=== PATIENT | male | born 1955 | race Two or more races ===

== ENCOUNTER 2023-07-23 09:34 | Day surgery (SDC) | payer OTHER ==
[2023-07-18 08:54] LABS: Basophils # (auto) 0.1 10 ^3/uL (0-0.2); Basophils % (auto) 0.8 % (0.0-2.0); Eosinophils # (auto) 0.8 10 ^3/uL (0-0.8)
[2023-07-18 08:57] LABS: Hemoglobin 14.8 g/dL (13.5-17.5); Lymphocytes # (auto) 2.1 10 ^3/uL (0.4-5.4); Lymphocytes % (auto) 18.7 % (10.0-50.0); Mean Corpuscular Hemoglobin 28.5 pg (28.0-32.0); Mean Corpuscular Volume 86.4 fL (80.0-100.0); Monocytes # (auto) 0.7 10 ^3/uL (0-1.3); Monocytes % (auto) 6.5 % (0.0-12.0); Neutrophils # (auto) 7.5 10 ^3/uL (1.6-8.6); Nucleated Red Blood Cells % 0.1 %; Red Cell Distribution Width 14.7 % (11.8-14.3); White Blood Cell 11.1 10^3/uL (4.4-10.8)
[2023-07-18 09:16] LABS: INR 1.04 (0.9-1.15); Partial Thromboplastin Time 27.8 SEC (24.5-34.5); Prothrombin Time 10.9 sec (9.3-11.8)
[2023-07-18 09:41] LABS: Alanine Aminotransferase 46 U/L (7-40); Albumin 4.6 g/dL (3.2-4.8); Alkaline Phosphatase 137 U/L (46-116); Anion Gap 3 (5-15); BUN/Creatinine Ratio 13.7 (10.0-20.0); Blood Urea Nitrogen 25 mg/dL (9-23); Calcium 10.2 mg/dL (8.5-10.1); Carbon Dioxide 32 mmol/L (20-30); Chloride 100 mmol/L (98-107); Glucose 235 mg/dL (74-106); Potassium 5.2 mmol/L (3.5-5.1); Sodium 135 mmol/L (136-145)
[2023-07-18 09:42] LABS: Aspartate Aminotransferase 28 U/L (13-40); Bilirubin, Total 0.6 mg/dL (0.2-1.0); Total Protein 7.6 g/dL (5.7-8.2)
[~2023-07-23] VITALS: Ht 177.8 cm; Wt 99.8 kg
[~2023-07-23 09:34] MED LIST: ENAL1TAB48 PO; GLIP5TAB12 PO; HYDR25TA5 PO; LEV100T PO
[2023-07-23] MEDS ORDERED: SODIUM CHLORIDE LOCK 0 ML ONE (09:41)
[2023-07-23] MEDS ORDERED: MIDAZOLAM HCL 5 MG/ML-1ML VIAL ONE (09:42)
[2023-07-23] MEDS ORDERED: fentaNYL CITRATE 100 MCG/2 ML VL ONE ×2 (09:42→10:34)
[2023-07-23] MEDS ORDERED: diphenhdrAMINE HCL 50 MG/1 ML VL ONE (09:42)
[2023-07-23] MEDS ORDERED: PROPOFOL 10 MG/ML 20 ML IV ONE ×2 (10:28→10:49)
[2023-07-23] MEDS ORDERED: ePHEDrine SULFATE 50 MG/ML AMP ONE (10:42)
[2023-07-23 10:57] VITALS: RESP 12; TEMP 97.8; O2SAT 98
[2023-07-23] MEDS ORDERED: ONDANSETRON HCL 4 MG/2 ML VIAL IV PRN (11:15)
[2023-07-23 11:50] VITALS: BP 102/69; PULSE 100; RESP 19; O2SAT 93
== END 2023-07-23 12:10 | disposition home or self-care (01) ==
LOC: GI 09:34
PROVIDERS: ATTEND Internal Medicine Gastroenterology
DX: K59.00 Constipation, unspecified (principal); D12.8 Benign neoplasm of rectum; K64.8 Other hemorrhoids; E11.9 Type 2 diabetes mellitus without complications; I10 Essential (primary) hypertension; E03.9 Hypothyroidism, unspecified; Z86.73 Personal history of transient ischemic attack (TIA), and cerebral infarction without residual deficits; Z79.84 Long term (current) use of oral hypoglycemic drugs; Z79.899 Other long term (current) drug therapy; Z98.890 Other specified postprocedural states; Z79.890 Hormone replacement therapy
CPT/HCPCS: 36415; 45385; 80053; 82962; 85025; 85610; 85730; 88305; J2704; J3010; J7030; J2250

== ENCOUNTER → 2023-09-11 | Outpatient (CLI) | payer OTHER ==
[2023-09-11 09:16] LABS: Basophils # (auto) 0.1 10 ^3/uL (0-0.2); Eosinophils # (auto) 0.8 10 ^3/uL (0-0.8); Monocytes # (auto) 0.8 10 ^3/uL (0-1.3); Monocytes % (auto) 7.5 % (0.0-12.0); White Blood Cell 11.2 10^3/uL (4.4-10.8)
[2023-09-11 09:18] LABS: Eosinophils % (auto) 7.5 % (0.0-7.0); Hematocrit 44.2 % (41.0-53.0); Hemoglobin 14.5 g/dL (13.5-17.5); Lymphocytes % (auto) 18.2 % (10.0-50.0); Mean Corpuscular Hemoglobin 28.4 pg (28.0-32.0); Mean Corpuscular Hgb Conc. 32.8 g/dL (32.0-36.0); Mean Corpuscular Volume 86.7 fL (80.0-100.0); Neutrophils # (auto) 7.3 10 ^3/uL (1.6-8.6); Neutrophils % (auto) 65.8 % (37.0-80.0); Nucleated Red Blood Cells % 0.1 %; Red Blood Cells 5.09 10^6/uL (4.5-5.90); Red Cell Distribution Width 14.9 % (11.8-14.3)
[2023-09-11 09:42] LABS: Alanine Aminotransferase 19 U/L (7-40); Albumin 4.3 g/dL (3.2-4.8); Alkaline Phosphatase 127 U/L (46-116); Anion Gap 2 (5-15); Aspartate Aminotransferase 23 U/L (13-40); BUN/Creatinine Ratio 12.3 (10.0-20.0); Bilirubin, Total 0.6 mg/dL (0.2-1.0); Blood Urea Nitrogen 19 mg/dL (9-23); Carbon Dioxide 31 mmol/L (20-30); Chloride 104 mmol/L (98-107); Glucose 177 mg/dL (74-106); Potassium 5.4 mmol/L (3.5-5.1); Sodium 137 mmol/L (136-145); Total Protein 7.4 g/dL (5.7-8.2)
== END | disposition home or self-care (01) ==
LOC: LAB 08:39
PROVIDERS: ATTEND Family Medicine
DX: E11.22 Type 2 diabetes mellitus with diabetic chronic kidney disease (principal); N18.2 Chronic kidney disease, stage 2 (mild); R82.993 Hyperuricosuria
CPT/HCPCS: 36415; 80053; 83036; 84443; 85025

== ENCOUNTER → 2023-09-12 | Outpatient (CLI) | payer OTHER ==
[2023-09-12 08:14] LABS: Chloride 102 mmol/L (98-107); Potassium 5.1 mmol/L (3.5-5.1); Sodium 136 mmol/L (136-145)
[2023-09-12 08:15] LABS: Anion Gap 4 (5-15); Carbon Dioxide 30 mmol/L (20-30)
[2023-09-12 08:16] LABS: Calcium 9.9 mg/dL (8.5-10.1)
[2023-09-12 08:20] LABS: Glucose 207 mg/dL (74-106)
[2023-09-12 08:21] LABS: BUN/Creatinine Ratio 11.3 (10.0-20.0); Blood Urea Nitrogen 17 mg/dL (9-23)
== END | disposition home or self-care (01) ==
LOC: LAB 07:43
PROVIDERS: ATTEND Family Medicine
DX: E11.22 Type 2 diabetes mellitus with diabetic chronic kidney disease (principal); N18.2 Chronic kidney disease, stage 2 (mild)
CPT/HCPCS: 36415; 80048; 82043

== ENCOUNTER → 2023-12-06 | Outpatient (CLI) | payer OTHER ==
[~2023-12-06] MED LIST changes: -GLIP5TAB12 PO; +GLIP5TAB21 PO
== END | disposition home or self-care (01) ==
LOC: LAB 09:40
PROVIDERS: ATTEND Family Medicine
DX: R31.9 Hematuria, unspecified (principal)
CPT/HCPCS: 87086; 87088; 87186

== ENCOUNTER 2023-12-31 12:28 | Inpatient (IN) | payer OTHER ==
[~2023-12-31] VITALS: Ht 177.8 cm; Wt 106.3 kg
[2023-12-31] MEDS ORDERED: HYDROcodone-ACET 10/325MG TAB PO ONE (14:00)
[2023-12-31 14:20] LABS: Urine Bacteria None Seen /hpf (None Seen); Urine Blood 3+ /uL (Negative); Urine Budding Yeast FEW /hpf (None Seen); Urine Clarity Ex.Turbid (Clear); Urine Color Dark-Brown (Yellow); Urine Mucus FEW (None Seen); Urine Protein, UAD 2+ (Negative); Urine Specific Gravity 1.014 (1.001-1.035); Urine Urobilinogen Normal (Negative); Urine WBC 1112 /hpf (0 - 3); Urine WBC Clumps PRESENT /hpf (None Seen); Urine pH 5.5 (5.0-9.0)
[2023-12-31 14:29] LABS: Basophils # (auto) 0.1 10 ^3/uL (0-0.2); Basophils % (auto) 0.7 % (0.0-2.0); Mean Corpuscular Hemoglobin 28.2 pg (28.0-32.0); Monocytes # (auto) 0.9 10 ^3/uL (0-1.3); Red Blood Cells 4.52 10^6/uL (4.5-5.90)
[2023-12-31 14:32] LABS: Eosinophils # (auto) 0.5 10 ^3/uL (0-0.8); Eosinophils % (auto) 3.7 % (0.0-7.0); Hematocrit 38.9 % (41.0-53.0); Hemoglobin 12.8 g/dL (13.5-17.5); Lymphocytes # (auto) 1.6 10 ^3/uL (0.4-5.4); Lymphocytes % (auto) 11.1 % (10.0-50.0); Mean Corpuscular Hgb Conc. 32.8 g/dL (32.0-36.0); Monocytes % (auto) 6.1 % (0.0-12.0); Neutrophils # (auto) 11.3 10 ^3/uL (1.6-8.6); Neutrophils % (auto) 78.4 % (37.0-80.0); Red Cell Distribution Width 14.9 % (11.8-14.3); White Blood Cell 14.4 10^3/uL (4.4-10.8)
[2023-12-31 15:02] LABS: Chloride 98 mmol/L (98-107); Sodium 133 mmol/L (136-145)
[2023-12-31 15:03] LABS: Anion Gap 4 (5-15); Carbon Dioxide 31 mmol/L (20-30)
[2023-12-31 15:04] LABS: Calcium 10.5 mg/dL (8.5-10.1)
[2023-12-31 15:08] LABS: BUN/Creatinine Ratio 11.3 (10.0-20.0); Blood Urea Nitrogen 33 mg/dL (9-23)
[2023-12-31] MEDS: cefTRIAXone 1GM/50ML D5W 50 ML IV ONE (15:40)
[2023-12-31 15:43] LABS: Glucose 432 mg/dL (74-106)
[2023-12-31 15:44] LABS: Potassium 5.6 mmol/L (3.5-5.1)
[2023-12-31] MEDS ORDERED: NITROGLYCERIN 0.4 MG SL TAB SL PRN (16:15)
[2023-12-31] MEDS: SODIUM BICARB 8.4% 50Meq/50ml SYR INJ IV ONE (16:15)
[2023-12-31] MEDS ORDERED: DEXTROSE (50%) 50ML SYRG IV PRN (16:15)
[2023-12-31] MEDS: InsuLIN REG 1unit/0.01ml Soln (100units/ml) IV ONE (16:15)
[2023-12-31] MEDS ORDERED: DOCUSATE SOD 100 MG CAP PO PRN (16:15)
[2023-12-31] MEDS ORDERED: ACETAMINOPHEN 325 MG TAB PO PRN (16:15)
[2023-12-31] MEDS ORDERED: MORPHINE SULFATE INJ 2 MG/ml SYRG IV PRN (16:15)
[2023-12-31] MEDS ORDERED: METO25TA93 PO (16:22)
[2023-12-31] MEDS ORDERED: FAMO-12 PO (16:22)
[2023-12-31] MEDS ORDERED: FUR20T PO (16:22)
[2023-12-31 16:46] LABS: Lactic Acid w/Reflex 2.1 mmol/L (0.4-2.0)
[2023-12-31] MEDS: ALBUTEROL SULF 2.5 MG/0.5ML(0.5%) NEB SOLN NEB ONE (16:51)
[2023-12-31] MEDS ORDERED: SIMV40TA18 PO (16:54)
[2023-12-31] MEDS: ACCU-CHEK COMFORT CURVE STRIP VI SCH ×2 (17:00→21:43)
[2023-12-31] MEDS: SODIUM CHLORIDE 0.9% 500 ML IV ONE (17:00)
[2023-12-31] MEDS: InsuLIN REG 1unit/0.01ml Soln (100units/ml) SC SCH ×2 (17:00→22:34)
[2023-12-31 19:30] VITALS: PULSE 104; RESP 18; O2SAT 96
[2023-12-31] MEDS: DEXTROSE (50%) 50ML SYRG IV ONE (20:25)
[2023-12-31] MEDS: SODIUM CHLORIDE 0.9% 1,000 ML IV SCH (20:37)
[2023-12-31] MEDS: FUROSEMIDE 40 MG/4 ML VIAL IV ONE (20:38)
[2023-12-31] MEDS: LIDOCAINE HCL 2% TOP JELLY 5ML TOP ONE (21:37)
[2023-12-31 21:51] VITALS: PULSE 104; RESP 18; O2SAT 96
[2023-12-31] MEDS: ATORVASTATIN 20 MG TAB PO SCH (22:20)
[2023-12-31] MEDS: FAMOTIDINE 20 MG TAB PO SCH (22:20)
[2024-01-01] MEDS: ONDANSETRON HCL 4 MG/2 ML VIAL IV PRN (02:54)
[2024-01-01] MEDS: MORPHINE SULFATE INJ 2 MG/ml SYRG IV PRN (02:54)
[2024-01-01 04:11] LABS: Basophils # (auto) 0.1 10 ^3/uL (0-0.2); Eosinophils # (auto) 0.7 10 ^3/uL (0-0.8); Lymphocytes # (auto) 1.2 10 ^3/uL (0.4-5.4); Mean Corpuscular Hemoglobin 28.6 pg (28.0-32.0); Monocytes % (auto) 7.4 % (0.0-12.0)
[2024-01-01 04:13] LABS: Basophils % (auto) 0.7 % (0.0-2.0); Eosinophils % (auto) 5.4 % (0.0-7.0); Hematocrit 33.5 % (41.0-53.0); Hemoglobin 11.2 g/dL (13.5-17.5); Lymphocytes % (auto) 9.1 % (10.0-50.0); Mean Corpuscular Hgb Conc. 33.4 g/dL (32.0-36.0); Mean Corpuscular Volume 85.5 fL (80.0-100.0); Neutrophils # (auto) 10.1 10 ^3/uL (1.6-8.6); Neutrophils % (auto) 77.4 % (37.0-80.0); Red Blood Cells 3.91 10^6/uL (4.5-5.90); Red Cell Distribution Width 14.4 % (11.8-14.3)
[2024-01-01 04:37] LABS: Alanine Aminotransferase 14 U/L (7-40); Albumin 3.8 g/dL (3.2-4.8); Alkaline Phosphatase 149 U/L (46-116); Anion Gap 4 (5-15); Aspartate Aminotransferase 12 U/L (13-40); BUN/Creatinine Ratio 13.2 (10.0-20.0); Bilirubin, Total 0.6 mg/dL (0.2-1.0); Blood Urea Nitrogen 33 mg/dL (9-23); Calcium 9.6 mg/dL (8.5-10.1); Carbon Dioxide 31 mmol/L (20-30); Chloride 100 mmol/L (98-107); Cholesterol 122 mg/dL (< 200); HDL Cholesterol 37 mg/dL (40-59); LDL Cholesterol 61 mg/dL (< 100); Sodium 135 mmol/L (136-145); Triglycerides 115 mg/dL (< 150)
[2024-01-01 04:38] LABS: Total Protein 6.6 g/dL (5.7-8.2)
[2024-01-01 04:41] LABS: Glucose 219 mg/dL (74-106)
[2024-01-01] MEDS: FUROSEMIDE 20 MG/2 ML VIAL IV SCH (05:50)
[2024-01-01] MEDS: LEVOTHYROXINE SODIUM 100 MCG TAB PO SCH (06:46)
[2024-01-01 08:17] VITALS: PULSE 105; RESP 20; O2SAT 95
[2024-01-01] MEDS: cefTRIAXone 1GM/50ML D5W 50 ML IV SCH (09:30)
[2024-01-01] MEDS ORDERED: FUROSEMIDE 20 MG TAB PO SCH (10:00)
[2024-01-01] MEDS: METOPROLOL SUCCINATE XL 50 MG TAB PO SCH (10:00)
[2024-01-01 10:31] VITALS: BP 132/74; PULSE 96; RESP 18; TEMP 98.3; O2SAT 95
[2024-01-01] MEDS ORDERED: VANCOMYCIN PER PHARMACY 0 MG IV SCH (11:00)
[2024-01-01] MEDS: VANCOMYCIN 1GM/200ML 200 ML IV ONE (11:35)
[2024-01-01] MEDS: INSULIN LANTUS (GLARGINE) 1 /0.01ml (100units/ml) SC SCH (11:58)
[2024-01-01] MEDS: MEROPENEM 1GM IVPB 50 ML IV SCH (13:00)
[2024-01-01 20:00] VITALS: PULSE 96
[2024-01-01 21:00] VITALS: BP 105/61; PULSE 96; RESP 18; TEMP 98.5; O2SAT 96
[2024-01-02] VITALS (9 sets, daily range): BP systolic 95–127; BP diastolic 60–83; PULSE 81–99; RESP 17–18; TEMP 97.4–98.3; O2SAT 77–98
[2024-01-02 06:52] LABS: Basophils # (auto) 0.1 10 ^3/uL (0-0.2); Eosinophils # (auto) 0.7 10 ^3/uL (0-0.8); Lymphocytes # (auto) 1.4 10 ^3/uL (0.4-5.4); Mean Corpuscular Hemoglobin 28.4 pg (28.0-32.0)
[2024-01-02 06:55] LABS: Basophils % (auto) 0.4 % (0.0-2.0); Eosinophils % (auto) 5.1 % (0.0-7.0); Hematocrit 34.7 % (41.0-53.0); Hemoglobin 11.5 g/dL (13.5-17.5); Lymphocytes % (auto) 10.2 % (10.0-50.0); Mean Corpuscular Hgb Conc. 33.2 g/dL (32.0-36.0); Mean Corpuscular Volume 85.4 fL (80.0-100.0); Monocytes % (auto) 7.1 % (0.0-12.0); Neutrophils # (auto) 10.5 10 ^3/uL (1.6-8.6); Neutrophils % (auto) 77.2 % (37.0-80.0); Nucleated Red Blood Cells % 0.1 %; Red Blood Cells 4.06 10^6/uL (4.5-5.90); Red Cell Distribution Width 14.9 % (11.8-14.3); White Blood Cell 13.6 10^3/uL (4.4-10.8)
[2024-01-02 07:08] LABS: Anion Gap 7 (5-15); Carbon Dioxide 28 mmol/L (20-30); Chloride 98 mmol/L (98-107); Potassium 4.4 mmol/L (3.5-5.1); Sodium 133 mmol/L (136-145)
[2024-01-02 07:14] LABS: BUN/Creatinine Ratio 17.2 (10.0-20.0); Blood Urea Nitrogen 31 mg/dL (9-23); Glucose 181 mg/dL (74-106)
[2024-01-02 09:10] LABS: INR 1.08 (0.9-1.15); Partial Thromboplastin Time 27.7 SEC (24.5-34.5); Prothrombin Time 11.4 sec (9.3-11.8)
[2024-01-02 09:14] LABS: Hepatitis B Surface Antigen Negative (Negative)
[2024-01-02 09:35] LABS: Hepatitis A Ab IgM Negative; Hepatitis B Core IgM Negative
[2024-01-02 09:36] LABS: Hepatitis C Antibody Negative (Negative)
[2024-01-02] MEDS: VANCOMYCIN 1GM/200ML 200 ML IV SCH (11:10)
[2024-01-02] MEDS ORDERED: fentaNYL CITRATE 100 MCG/2 ML VL ONE (12:54)
[2024-01-02] MEDS ORDERED: PROPOFOL 10 MG/ML 20 ML IV ONE (12:54)
[2024-01-02] MEDS ORDERED: ePHEDrine SULFATE 50 MG/ML AMP ONE (13:09)
[2024-01-02] MEDS ORDERED: MEPERIDINE HCL (50 MG/ML) 1 ML VIAL ONE (13:26)
[2024-01-02] MEDS: ONDANSETRON HCL 4 MG/2 ML VIAL IV ONE (14:15)
[2024-01-02] MEDS ORDERED: HYDROmorphone HCL 2 MG/ML VL/or syr IV PRN (14:15)
[2024-01-02] MEDS: MORPHINE SULFATE 4 MG/ML SYR/VIAL IV PRN (18:20)
[2024-01-02] MEDS: HYDROcodone-ACET 5/325MG TAB PO PRN (21:17)
[2024-01-03] VITALS (7 sets, daily range): BP systolic 101–149; BP diastolic 54–86; PULSE 84–106; RESP 16–18; TEMP 97.5–99.6; O2SAT 90–94
[2024-01-03 06:36] LABS: Basophils # (auto) 0.1 10 ^3/uL (0-0.2); Hemoglobin 10.6 g/dL (13.5-17.5); Mean Corpuscular Hemoglobin 28.7 pg (28.0-32.0); Neutrophils # (auto) 9.9 10 ^3/uL (1.6-8.6); Red Cell Distribution Width 14.7 % (11.8-14.3)
[2024-01-03 06:38] LABS: Basophils % (auto) 0.6 % (0.0-2.0); Eosinophils # (auto) 0.7 10 ^3/uL (0-0.8); Eosinophils % (auto) 5.4 % (0.0-7.0); Hematocrit 32.2 % (41.0-53.0); Lymphocytes # (auto) 1.4 10 ^3/uL (0.4-5.4); Lymphocytes % (auto) 10.7 % (10.0-50.0); Mean Corpuscular Volume 86.9 fL (80.0-100.0); Monocytes % (auto) 7.7 % (0.0-12.0); Neutrophils % (auto) 75.6 % (37.0-80.0); White Blood Cell 13.1 10^3/uL (4.4-10.8)
[2024-01-03 06:41] LABS: Calcium 9.1 mg/dL (8.5-10.1); Chloride 102 mmol/L (98-107); Potassium 4.4 mmol/L (3.5-5.1); Sodium 133 mmol/L (136-145)
[2024-01-03 06:42] LABS: Anion Gap 5 (5-15); Carbon Dioxide 26 mmol/L (20-30)
[2024-01-03 06:47] LABS: BUN/Creatinine Ratio 13.6 (10.0-20.0); Blood Urea Nitrogen 19 mg/dL (9-23); Glucose 155 mg/dL (74-106)
[2024-01-03] MEDS: CEFEPIME 1GM/ 50ML 50 ML IV SCH (12:08)
[2024-01-03] MEDS: FAMOTIDINE 20 MG TAB PO SCH (17:19)
[2024-01-04 01:00] VITALS: BP 103/68; PULSE 111; RESP 18; TEMP 98.7; O2SAT 95
[2024-01-04 05:52] LABS: Eosinophils # (auto) 0.7 10 ^3/uL (0-0.8); White Blood Cell 11.3 10^3/uL (4.4-10.8)
[2024-01-04 05:55] LABS: Basophils # (auto) 0.1 10 ^3/uL (0-0.2); Basophils % (auto) 0.7 % (0.0-2.0); Eosinophils % (auto) 6.5 % (0.0-7.0); Hematocrit 29.6 % (41.0-53.0); Lymphocytes # (auto) 1.3 10 ^3/uL (0.4-5.4); Lymphocytes % (auto) 11.2 % (10.0-50.0); Mean Corpuscular Hgb Conc. 33.8 g/dL (32.0-36.0); Mean Corpuscular Volume 85.8 fL (80.0-100.0); Monocytes # (auto) 0.9 10 ^3/uL (0-1.3); Monocytes % (auto) 8.2 % (0.0-12.0); Neutrophils # (auto) 8.3 10 ^3/uL (1.6-8.6); Neutrophils % (auto) 73.4 % (37.0-80.0); Red Blood Cells 3.45 10^6/uL (4.5-5.90); Red Cell Distribution Width 14.5 % (11.8-14.3)
[2024-01-04 05:59] LABS: Chloride 105 mmol/L (98-107); Potassium 3.9 mmol/L (3.5-5.1); Sodium 135 mmol/L (136-145)
[2024-01-04 06:00] LABS: Anion Gap 7 (5-15); Calcium 8.4 mg/dL (8.7-10.4); Carbon Dioxide 23 mmol/L (20-30)
[2024-01-04 06:05] LABS: Blood Urea Nitrogen 16 mg/dL (9-23); Glucose 168 mg/dL (74-106)
[2024-01-04] MEDS: CEFEPIME 1GM/ 50ML 50 ML IV SCH (09:08)
[2024-01-04 09:13] VITALS: BP 133/89; PULSE 103; RESP 20; TEMP 98.4; O2SAT 95
[2024-01-04 12:54] VITALS: BP 120/74; PULSE 94; RESP 20; TEMP 98; O2SAT 97
[2024-01-04] MEDS ORDERED: INSUINJ37 SC (15:50)
[2024-01-04 16:11] VITALS: BP 133/89; PULSE 103; TEMP 36.7
[2024-01-04 17:09] VITALS: BP 136/90; PULSE 91; RESP 20; TEMP 98.6; O2SAT 97
== END 2024-01-04 19:00 | disposition home health service (06) | DRG 853 ==
LOC: ER 12:28 → OVERFLOW 16:11 → TELE-E-ADS 01-01 10:30 → TELE-WESTW 01-01 19:20 → WEST WING 01-03 13:39
PROVIDERS: ADMIT Internal Medicine Geriatric Medicine; ATTEND Internal Medicine Geriatric Medicine
PROC: 0VT08ZZ Resection of Prostate, Via Natural or Artificial Opening Endoscopic (ICD-10-PCS; principal; 2024-01-02 12:57)
PROC: 05HA33Z Insertion of Infusion Device into Left Brachial Vein, Percutaneous Approach (ICD-10-PCS; 2024-01-03)
PROC: B54NZZA Ultrasonography of Left Upper Extremity Veins, Guidance (ICD-10-PCS; 2024-01-03)
DX: A41.9 Sepsis, unspecified organism (principal); I50.23 Acute on chronic systolic (congestive) heart failure; R65.21 Severe sepsis with septic shock; N17.0 Acute kidney failure with tubular necrosis; E87.1 Hypo-osmolality and hyponatremia; I13.0 Hypertensive heart and chronic kidney disease with heart failure and stage 1 through stage 4 chronic kidney disease, or unspecified chronic kidney disease; N30.81 Other cystitis with hematuria; E11.22 Type 2 diabetes mellitus with diabetic chronic kidney disease; E87.5 Hyperkalemia; E03.9 Hypothyroidism, unspecified; N18.9 Chronic kidney disease, unspecified; E78.5 Hyperlipidemia, unspecified; R31.0 Gross hematuria; N40.1 Benign prostatic hyperplasia with lower urinary tract symptoms; R33.8 Other retention of urine; Z87.442 Personal history of urinary calculi; Z87.891 Personal history of nicotine dependence; Z86.73 Personal history of transient ischemic attack (TIA), and cerebral infarction without residual deficits; Z79.4 Long term (current) use of insulin
CPT/HCPCS: 36415; 71045; 74176; 80048; 80053; 80061; 80074; 80202; 81001; 82962; 83036; 83605; 83880; 84132; 84443; 85025; 85610; 85730; 86703; 87040; 87081; 87086; 93306; 94640; G0378; J1815; J2185; J2405; J2704

== ENCOUNTER → 2024-02-25 | Outpatient (CLI) | payer OTHER ==
[~2024-02-25] MED LIST changes: +FAMO-12 PO; +FUR20T PO; +INSUINJ37 SC; +METO25TA93 PO; +SIMV40TA18 PO
== END | disposition home or self-care (01) ==
LOC: LAB 08:34
PROVIDERS: ATTEND Family Medicine
DX: E11.22 Type 2 diabetes mellitus with diabetic chronic kidney disease (principal); E11.40 Type 2 diabetes mellitus with diabetic neuropathy, unspecified; N18.9 Chronic kidney disease, unspecified
CPT/HCPCS: 36415; 83036

== ENCOUNTER → 2024-03-10 | Outpatient (CLI) | payer OTHER | END | disposition home or self-care (01) | LOC: XY 09:31 | PROVIDERS: ATTEND Podiatrist | DX: I77.9 Disorder of arteries and arterioles, unspecified (principal) | CPT/HCPCS: 93925 ==

== ENCOUNTER → 2024-03-23 | Outpatient (CLI) | payer OTHER ==
[2024-03-23 09:09] LABS: Anion Gap 7 (5-15); Calcium 10.1 mg/dL (8.7-10.4); Carbon Dioxide 27 mmol/L (20-30); Chloride 103 mmol/L (98-107); Potassium 5.5 mmol/L (3.5-5.1); Sodium 137 mmol/L (136-145)
[2024-03-23 09:15] LABS: BUN/Creatinine Ratio 15.7 (10.0-20.0); Blood Urea Nitrogen 29 mg/dL (9-23); Glucose 281 mg/dL (74-106)
[2024-03-23 09:16] LABS: Creatinine, Urine 55.09 mg/dL (30.0-125.0)
== END | disposition home or self-care (01) ==
LOC: LAB 08:16
PROVIDERS: ATTEND Family Medicine
DX: E11.9 Type 2 diabetes mellitus without complications (principal)
CPT/HCPCS: 36415; 80048; 82043; 82570; 83036

== ENCOUNTER → 2024-07-29 | Outpatient (CLI) | payer OTHER ==
[~2024-07-29] MED LIST changes: -FUR20T PO; +FURO20TA4 PO; -LEV100T PO; +LEVO-849 PO
[2024-07-29 07:48] LABS: Urine Bacteria None Seen /hpf (None Seen)
[2024-07-29 07:49] LABS: Basophils # (auto) 0.1 10 ^3/uL (0-0.2); Lymphocytes # (auto) 1.8 10 ^3/uL (0.4-5.4); Mean Corpuscular Hemoglobin 28.2 pg (28.0-32.0); Mean Corpuscular Hgb Conc. 33.3 g/dL (32.0-36.0); Monocytes # (auto) 0.6 10 ^3/uL (0-1.3); Neutrophils # (auto) 6.9 10 ^3/uL (1.6-8.6)
[2024-07-29 07:51] LABS: Basophils % (auto) 0.6 % (0.0-2.0); Eosinophils # (auto) 0.7 10 ^3/uL (0-0.8); Eosinophils % (auto) 6.7 % (0.0-7.0); Hemoglobin 15.3 g/dL (13.5-17.5); Lymphocytes % (auto) 17.9 % (10.0-50.0); Mean Corpuscular Volume 84.9 fL (80.0-100.0); Monocytes % (auto) 5.6 % (0.0-12.0); Neutrophils % (auto) 69.2 % (37.0-80.0); Nucleated Red Blood Cells % 0.1 %; Platelet Count (auto) 677 10^3/uL (140-450); Red Blood Cells 5.42 10^6/uL (4.5-5.90)
[2024-07-29 08:06] LABS: Urine Blood Negative /uL (Negative); Urine Clarity Clear (Clear); Urine Color Light-Yellow (Yellow); Urine Hyaline Cast FEW /lpf (0 - 2); Urine Protein, UAD 1+ (Negative); Urine Specific Gravity 1.011 (1.001-1.035); Urine Urobilinogen Normal (Negative); Urine WBC <1 /hpf (0 - 3); Urine pH 5.5 (5.0-9.0)
[2024-07-29 08:19] LABS: Alanine Aminotransferase 20 U/L (7-40); Albumin 4.7 g/dL (3.2-4.8); Anion Gap 5 (5-15); Aspartate Aminotransferase 14 U/L (13-40); BUN/Creatinine Ratio 21.8 (10.0-20.0); Carbon Dioxide 31 mmol/L (20-31); Chloride 103 mmol/L (98-107); Cholesterol 176 mg/dL (< 200); HDL Cholesterol 55 mg/dL (40-59); LDL Cholesterol 82 mg/dL (< 100); Magnesium 1.6 mg/dL (1.6-2.6); Sodium 139 mmol/L (136-145)
[2024-07-29 08:20] LABS: Bilirubin, Total 0.4 mg/dL (0.2-1.0)
[2024-07-29 08:22] LABS: Alkaline Phosphatase 143 U/L (46-116); Blood Urea Nitrogen 39 mg/dL (9-23); Calcium 10.7 mg/dL (8.7-10.4); Glucose 190 mg/dL (74-106); Triglycerides 182 mg/dL (< 150)
[2024-07-29 08:47] LABS: Uric Acid 10.4 mg/dL (3.7-9.2)
[2024-07-29 08:49] LABS: Prostate Specific Antigen 0.54 ng/mL (0.0-4.0)
== END | disposition home or self-care (01) ==
LOC: LAB 07:36
PROVIDERS: ATTEND Family Medicine
DX: E11.22 Type 2 diabetes mellitus with diabetic chronic kidney disease (principal); N18.2 Chronic kidney disease, stage 2 (mild); E78.5 Hyperlipidemia, unspecified; E11.9 Type 2 diabetes mellitus without complications; E03.9 Hypothyroidism, unspecified
CPT/HCPCS: 36415; 80053; 80061; 81001; 82043; 82306; 82607; 83036; 83735; 84153; 84443; 84550; 85025; 87086

== ENCOUNTER → 2024-09-09 | Outpatient (CLI) | payer OTHER ==
[2024-09-09 10:28] LABS: Basophils # (auto) 0.1 10 ^3/uL (0-0.2); Hemoglobin 15.5 g/dL (13.5-17.5); Lymphocytes # (auto) 1.8 10 ^3/uL (0.4-5.4)
[2024-09-09 10:30] LABS: Basophils % (auto) 0.7 % (0.0-2.0); Eosinophils # (auto) 0.2 10 ^3/uL (0-0.8); Eosinophils % (auto) 3.2 % (0.0-7.0); Hematocrit 46.4 % (41.0-53.0); Lymphocytes % (auto) 24.2 % (10.0-50.0); Mean Corpuscular Hemoglobin 28.5 pg (28.0-32.0); Mean Corpuscular Hgb Conc. 33.4 g/dL (32.0-36.0); Mean Corpuscular Volume 85.4 fL (80.0-100.0); Monocytes # (auto) 0.8 10 ^3/uL (0-1.3); Monocytes % (auto) 10.9 % (0.0-12.0); Neutrophils # (auto) 4.6 10 ^3/uL (1.6-8.6); Nucleated Red Blood Cells % 0.1 %; Platelet Count (auto) 529 10^3/uL (140-450); Red Blood Cells 5.44 10^6/uL (4.5-5.90); White Blood Cell 7.6 10^3/uL (4.4-10.8)
[2024-09-09 10:34] LABS: Chloride 100 mmol/L (98-107); Potassium 4.7 mmol/L (3.5-5.1)
[2024-09-09 10:35] LABS: Anion Gap 6 (5-15); Carbon Dioxide 30 mmol/L (20-31)
[2024-09-09 10:40] LABS: BUN/Creatinine Ratio 14.9 (10.0-20.0)
[2024-09-09 10:48] LABS: Blood Urea Nitrogen 40 mg/dL (9-23); Calcium 10.4 mg/dL (8.7-10.4); Glucose 169 mg/dL (74-106); Sodium 136 mmol/L (136-145)
[2024-09-09 10:59] LABS: INR 1.03 (0.9-1.15); Partial Thromboplastin Time 29.3 SEC (24.5-34.5); Prothrombin Time 10.9 sec (9.3-11.8)
== END | disposition home or self-care (01) ==
LOC: LAB 10:03
PROVIDERS: ATTEND Podiatrist
DX: M86.172 Other acute osteomyelitis, left ankle and foot (principal); E11.22 Type 2 diabetes mellitus with diabetic chronic kidney disease
CPT/HCPCS: 36415; 80048; 85025; 85610; 85730

== ENCOUNTER 2024-10-12 11:19 | Inpatient (IN) | payer OTHER ==
[~2024-10-12] VITALS: Ht 177.8 cm; Wt 101.5 kg
--- NOTE | 2024-10-12 11:56 | ED.PDOC ---
History of Present Illness HPI Comments 69-year-old male presents with a chief complaint of rash. Patient has red rash that is dry to his bilateral hands and face. Patient mentions that he was given 2 creams and Doxycycline for an ulcer that is on his left great toe. Patient mentions that he is pending a PICC line once he is evaluated by a kidney doctor. Patient mentions that his appointment is in two months for the pole shaver. Chief Complaint: Allergic Reaction Time Seen by MD: : Reviewed Notes: Medications, Allergies Allergies: Coded Allergies: Doxycycline (Verified Allergy, Unknown, 10/13/24) Home Meds Active Scripts Insulin Glargine (Lantus Solostar) 100 Unit/Ml Inj, 10 UNIT SC QAM, #1500 UNITS Prov:DENIA ANDREW MD 01/04/24 Reported Medications Simvastatin (Simvastatin) 40 Mg Tab, 1 TAB PO DAILY, #30 TAB 5 Refills 10/13/24 Famotidine (PEPCID TABLET) 20 Mg Tb, 1 TAB PO DAILY, #60 TAB 5 Refills 10/13/24 Simvastatin (Simvastatin) 40 Mg Tab, 1 TAB PO 12/31/23 Metoprolol Succinate (Metoprolol Succinate Er) 25 Mg Tab, 1 TAB PO DAILY 12/31/23 Famotidine (Famotidine) 20 Mg Tab, 1 TAB PO 12/31/23 Furosemide (Furosemide) 20 Mg Tab, 1 TAB PO DAILY 12/31/23 Levothyroxine Sodium (SYNTHROID TABLET) 100 Mcg Tb, 100 MCG PO DAILY, TAB 07/18/23 Hctz (Hydrochlorothiazide) 25 Mg Tab, 12.5 MG PO DAILY, TAB 07/18/23 Glipizide (Glipizide) 5 Mg Tab, 5 MG PO BID, TAB 07/18/23 Discontinued Reported Medications Glipizide (Glipizide) 5 Mg Tab, 1 TAB PO DAILY, #90 TAB 3 Refills 10/13/24 Enalapril Maleate (Enalapril Maleate) 20 Mg Tab, 20 MG PO DAILY, TAB 07/18/23 Information Source: Patient Mode of Arrival: Ambulatory Severity: Moderate Timing: Days Duration: Since onset Prehospital treatment: None Past Medical History PAST MEDICAL HISTORY: CVA, DM, High Lipids, HTN, Thyroid Surgical History: Tonsillectomy Family History Family History: Reviewed,noncontributory to illness Social History Smoker: Quit Less Than 1 Year, Cigarettes Alcohol: Occasionally Drugs: Marijuana Lives In: Home Constitutional: denies: chills, diaphoresis, fatigue, fever, malaise, sweats, weakness, others EENTM: denies: blurred vision, double vision, ear bleeding, ear discharge, ear drainage, ear pain, ear ringing, eye pain, eye redness, hearing loss, mouth pain, mouth swelling, nasal discharge, nose bleeding, nose congestion, nose pain, photophobia, tearing, throat pain, throat swelling, voice changes, others Respiratory: denies: cough, hemoptysis, orthopnea, SOB at rest, shortness of breath, SOB with excertion, stridor, wheezing, others Cardiovascular: denies: chest pain, dizzy spells, diaphoresis, Dyspnea on exertion, edema, irregular heart beat, left arm pain, lightheadedness, palpitations, PND, syncope, others Gastrointestinal: denies: abdomen distended, abdominal pain, blood streaked bowels, constipated, diarrhea, dysphagia, difficulty swallowing, hematemesis, melena, nausea, poor appetite, poor fluid intake, rectal bleeding, rectal pain, vomiting, others Genitourinary: denies: burning, dysuria, flank pain, frequency, hematuria, incontinence, penile discharge, penile sore, pain, testicle pain, testicle swelling, urgency, others Neurological: denies: dizziness, fainting, headache, left sided numbness, left sided weakness, numbness, paresthesia, pre-existing deficit, right sided numbness, right sided weakness, seizure, speech problems, tingling, tremors, weakness, others Musculoskeletal: denies: back pain, gout, joint pain, joint swelling, muscle p ain, muscle stiffness, neck pain, others Integumetry: reports: rash; denies: bruises, change in color, change in hair/nails, dryness, laceration, lesions, lumps, wounds, others Allergic/Immunocompromised: denies: Difficulty Healing, Frequent Infections, Hives, Itching, others Hematologic/Lymphatic: denies: anemia, blood clots, easy bleeding, easy bruising, swollen glands, others Endocrine: denies: excessive hunger, excessive sweating, excessive thirst, excessive urination, flushing, intolerance to cold, intolerance to heat, u nexplained weight gain, unexplained weight loss, others Psychiatric: denies: anxiety, bipolar disorder, depression, hopeless, panic disorder, schizophrenia, sleepless, suicidal, others All Other Systems: Reviewed and Negative Physical Exam General Appearance: No Apparent Distress, Normal HEENT: Normal ENT Inspection, Pharynx Normal, TMs Normal Neck: Full Range of Motion, Non-Tender, Normal, Normal Inspection Respiratory: Chest Non-Tender, Lungs Clear, No Accessory Muscle Use, No Respiratory Distress, Normal Breath Sounds Cardiovascular: No Edema, No JVD, No Murmur, No Gallop, Normal Peripheral P ulses, Regular Rate/Rhythm Breast Exam: Deferred Gastrointestinal: No Organomegaly, Non Tender, No Pulsatile Mass, Normal Bowel Sounds, Soft Genitalia: Deferred Pelvic: Deferred Rectal: Deferred Extremities: No calf tenderness, Normal capillary refill, Normal inspection, Normal range of motion, Non-tender, No pedal edema, Other (ULCER LEFT GREAT TOE) Musculoskeletal : Apperance: Normal Neurologic: Alert, brass burnisher II-XII nml as Tested, No Motor Deficits, Normal Affect, Normal Mood, No Sensory Deficits Cerebellar Function: Normal Reflexes: Normal Skin: Dry, Normal Color, Warm Lymphatic: No Adenopathy Was a procedure done? Was a procedure done?: No Differential Dx Considerations may include: Cellulitis, osteomyelitis, abscess X-Ray, Labs, Meds, VS Vital Signs Date Time Temp Pulse Resp B/P (MAP) Pulse Ox O2 Delivery O2 Flow Rate FiO2 10/12/24 14:53 91 18 97 Room Air* 0 21 10/12/24 14:53 97.9 91 18 130/78 (95) 97 97.9 10/12/24 12:50 97.8 88 18 116/60 (78) 92 97.8 10/12/24 11:28 98.9 85 18 133/84 (100) 96 Lab Test 10/12/24 15:05 10/12/24 13:09 10/12/24 13:02 10/12/24 11:31 Range/Units Lactic Acid Level 1.3 2.6 *H 0.4-2.0 mmol/L Urine Color Light-yellow Yellow Urine Clarity Clear Clear Urine pH 5.0 5.0-9.0 Urine Specific [place] 1.010 1.001-1.035 Urine Protein Negative Negative Urine Ketones Negative Negative Urine Blood Negative Negative /uL Urine Nitrite Negative Negative Urine Bilirubin Negative Negative Urine Urobilinogen Normal Negative mg/dL Urine Leukocyte Esterase Negative Negative /uL Urine RBC None seen 0 - 3 /hpf Urine Microscopic WBC 0-3 /HPF Urine Squamous Epithelial Cells None seen <5 /hpf Urine Bacteria None seen None Seen /hpf Urine Hyaline Casts Few 0 - 2 /lpf Urine Glucose Normal Normal mg/dL White Blood Count 9.7 4.4-10.8 10^3/uL Red Blood Count 5.11 4.5-5.90 10^6/uL Hemoglobin 14.4 13.5-17.5 g/dL Hematocrit 43.2 41.0-53.0 % Mean Corpuscular Volume 84.5 80.0-100.0 fL Mean Corpuscular Hemoglobin 28.2 28.0-32.0 pg Mean Corpuscular Hemoglobin Concent 33.3 32.0-36.0 g/dL Red Cell Distribution Width 14.8 H 11.8-14.3 % Platelet Count 649 H 140-450 10^3/uL Mean Platelet Volume 8.2 6.9-10.8 fL Neutrophils (%) (Auto) 71.1 37.0-80.0 % Lymphocytes (%) (Auto) 16.0 10.0-50.0 % Monocytes (%) (Auto) 6.8 0.0-12.0 % Eosinophils (%) (Auto) 5.4 0.0-7.0 % Basophils (%) (Auto) 0.7 0.0-2.0 % Neutrophils # (Auto) 6.9 1.6-8.6 10 ^3/uL Lymphocytes # (Auto) 1.5 0.4-5.4 10 ^3/uL Monocytes # (Auto) 0.7 0-1.3 10 ^3/uL Eosinophils # (Auto) 0.5 0-0.8 10 ^3/uL Basophils # (Auto) 0.1 0-0.2 10 ^3/uL Nucleated Red Blood Cells 0.0 % Sodium Level 138 136-145 mmol/L Potassium Level 5.1 3.5-5.1 mmol/L Chloride Level 102 98-107 mmol/L Carbon Dioxide Level 26 20-31 mmol/L Anion Gap 10 5-15 Blood Urea Nitrogen 45 H 9-23 mg/dL Creatinine 2.30 H 0.700-1.30 mg/dL Glomerular Filtration Rate Calc 30 >90 mL/min BUN/Creatinine Ratio 19.6 10.0-20.0 Serum Glucose 179 H 74-106 mg/dL Calcium Level 10.1 8.7-10.4 mg/dL POC Glucose 70 70-106 mg/dl Microbiology Date/Time Source Procedure Growth Status 10/12/24 13:02 Blood Blood Culture - Final NO GROWTH AFTER 5 DAYS OF INCUBATION. Complete 10/12/24 13:02 Blood Blood Culture - Final NO GROWTH AFTER 5 DAYS OF INCUBATION. Complete Time of 1ST Reevaluation: 11:55 Reevaluation 1ST: Unchanged Patient Education/Counseling: Diagnosis, Treatment, Prognosis Family Education/Counseling: Diagnosis, Treatment, Prognosis Departure 1 Departure Time of Disposition: 05:27 (Patient with worsening cellulitis and actually has a patient for further workup) Impression: Primary Impression: Cellulitis of right lower extremity Additional Impression: Wound of foot Disposition: ADMITTED INPATIENT Admit to: Med Surg Condition: Serious Critical Care Note Critical Care Time?: No Stability Stability form required: No Heart Score Heart Score: Heart Score Response (Comments) Value History N/A 0 EKG N/A 0 Age N/A 0 Risk Factors N/A 0 Troponin N/A 0 Total 0 I personally scribed for NIKOLAS REESE MD ([email or web address]) on 10/12/24 at 11:56. Electronically submitted by Romaine Mijares ([email or web address]). NIKOLAS REESE MD Oct 12, 2024 11:56
[2024-10-12 13:10] LABS: Urine Bacteria None Seen /hpf (None Seen)
[2024-10-12 13:17] LABS: Basophils # (auto) 0.1 10 ^3/uL (0-0.2); Eosinophils # (auto) 0.5 10 ^3/uL (0-0.8); Monocytes # (auto) 0.7 10 ^3/uL (0-1.3); White Blood Cell 9.7 10^3/uL (4.4-10.8)
[2024-10-12 13:20] LABS: Basophils % (auto) 0.7 % (0.0-2.0); Eosinophils % (auto) 5.4 % (0.0-7.0); Hematocrit 43.2 % (41.0-53.0); Hemoglobin 14.4 g/dL (13.5-17.5); Lymphocytes # (auto) 1.5 10 ^3/uL (0.4-5.4); Mean Corpuscular Hemoglobin 28.2 pg (28.0-32.0); Mean Corpuscular Hgb Conc. 33.3 g/dL (32.0-36.0); Mean Corpuscular Volume 84.5 fL (80.0-100.0); Monocytes % (auto) 6.8 % (0.0-12.0); Neutrophils # (auto) 6.9 10 ^3/uL (1.6-8.6); Neutrophils % (auto) 71.1 % (37.0-80.0); Platelet Count (auto) 649 10^3/uL (140-450); Red Blood Cells 5.11 10^6/uL (4.5-5.90); Red Cell Distribution Width 14.8 % (11.8-14.3)
[2024-10-12 13:23] LABS: Urine Blood Negative /uL (Negative); Urine Clarity Clear (Clear); Urine Color Light-Yellow (Yellow); Urine Hyaline Cast FEW /lpf (0 - 2); Urine Protein, UAD Negative (Negative); Urine Squamous Epithelial Cell None Seen /hpf (<5); Urine Urobilinogen Normal (Negative)
[2024-10-12 13:34] LABS: Chloride 102 mmol/L (98-107); Potassium 5.1 mmol/L (3.5-5.1); Sodium 138 mmol/L (136-145)
[2024-10-12 13:35] LABS: Anion Gap 10 (5-15); Calcium 10.1 mg/dL (8.7-10.4); Carbon Dioxide 26 mmol/L (20-31)
[2024-10-12 13:40] LABS: BUN/Creatinine Ratio 19.6 (10.0-20.0)
[2024-10-12 13:43] LABS: Blood Urea Nitrogen 45 mg/dL (9-23); Glucose 179 mg/dL (74-106)
[2024-10-12 13:53] LABS: Lactic Acid w/Reflex 2.6 mmol/L (0.4-2.0)
[2024-10-12 14:53] VITALS: PULSE 91; RESP 18; O2SAT 97
[2024-10-12] MEDS: methylPREDNISolone SOD SUCC 125 MG/2 ML VL IV ONE (15:06)
[2024-10-12] MEDS: VANCOMYCIN 1GM/250ML KIT 200 ML IV ONE (15:07)
[2024-10-12] MEDS ORDERED: HYDROcodone-ACET 5/325MG TAB PO PRN (15:45)
[2024-10-12] MEDS: SODIUM CHLORIDE 0.9% 1,000 ML IV ONE ×2 (15:45→23:04)
[2024-10-12] MEDS ORDERED: ONDANSETRON HCL 4 MG/2 ML VIAL IV PRN (15:45)
[2024-10-12] MEDS ORDERED: DOCUSATE SOD 100 MG CAP PO PRN (15:45)
[2024-10-12] MEDS ORDERED: ACETAMINOPHEN 325 MG TAB PO PRN (15:45)
[2024-10-12] MEDS ORDERED: VANCOMYCIN PER PHARMACY 0 MG IV SCH (15:45)
--- NOTE | 2024-10-12 16:25 | DVHHP2 ---
History of Present Illness Reason for Visit: Allergic reaction History of Present Illness Javier Pantoja is a 69-year-old male with past medical history of 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 Patient has a diabetic foot wound to his left great toe for about 3 months. He has been following with his primary care provider and podiatry regularly for treatment. In July he had an MRI of his foot that showed osteomyelitis. He has been taking oral antibiotics for a couple months, waiting to see nephrology for renal clearance for a Picc line and IV antibiotics due to renal failure. About 3 weeks ago patient started getting a rash to his face and bilateral hands. He went to his primary care provider who prescribed a steroid cream. He has been using it without any improvement. He went back to his doctor and was told it is probably an allergic reaction to his antibiotics and to go to the hospital. Patient does have an appointment for tomorrow with nephrology. 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 weakness) Endocrine: Diabetes Past Surgical History: Other (partial let ring finger amputation, left toe amputation, right wrist surgery), Tonsillectomy Smoke: <1 pack per day ALCOHOL: rare Drugs: Marijuana Lives: Roommate Domestic Violence: Neg Review of Systems Constitutional: No: Fever, Chills, Sweats, Weakness, Malaise, Other Eyes: No: Pain, Vision change, Conjunctivae inflammation, Eyelid inflammation, Other, Redness ENT: No: Ear pain, Ear discharge, Nose pain, Nose discharge, Nose congestion, Mouth pain, Mouth swelling, Throat pain, Throat swelling, Other Respiratory: No: Cough, Dry, Shortness of breath, SOB with excertion, Wheezing, Hemoptysis, Pleuritic Pain, Sputum, Wheezing, Other Cardiovascular: No: Chest Pain, Palpitations, Orthopnea, Paroxysmal Noc. Dyspnea, Edema, Lt Headedness, Other Gastrointestinal: No: Nausea, Vomiting, Abdominal Pain, Diarrhea, Constipation, Melena, Hematochezia, Other Genitourinary: No Dysuria, No Frequency, No Incontinence, No Hematuria, No Retention, No Other Musculoskeletal: No: other, neck pain, shoulder pain, arm pain, back pain, hand pain, leg pain, foot pain Skin: Rash (rash to bilateral hands that is red with scabbed wounds, redness noted to face), Other (left great toe diabetic foot wound); No: Lesions, Jaundice, Bruising Neurological: No: Weakness, Numbness, Incoordination, Change in speech, Confusion, Seizures, Other Allergies: Coded Allergies: NO KNOWN ALLERGIES (Unverified , 07/18/23) Exam Vital Signs Vital Signs Date Time Temp Pulse Resp B/P (MAP) Pulse Ox O2 Delivery O2 Flow Rate FiO2 10/12/24 15:49 91 18 97 Room Air 10/12/24 14:53 0 21 10/12/24 14:53 97.9 130/78 (95) 97.9 General Appearance: Alert, Oriented X3, Cooperative, mild distress HEENT: Atraumatic, PERRLA Respiratory: Clear to auscultation, Normal air movement Cardiovascular: Regular rate, Normal S1, Normal S2, No murmurs Abdominal: Normal bowel sounds, Soft, No tenderness, No hepatospenomegaly Extremities: No clubbing, No cyanosis, No edema, Normal pulses, No tenderness/swelling Skin: No rashes (rash to bilateral hands that is red with scabbed wounds, redness noted to face), No breakdown (diabetic foot ulcer to left great toe), No significant lesion Neuro: Normal gait, Normal speech, Strength at 5/5 X4 ext Psych/Mental Status: Mental status NL, Mood NL Labs/Xrays Labs Test 10/12/24 15:05 10/12/24 13:09 10/12/24 13:02 10/12/24 11:31 Range/Units Urine Color Light-yellow Yellow Urine Clarity Clear Clear Urine pH 5.0 5.0-9.0 Urine Specific [place] 1.010 1.001-1.035 Urine Protein Negative Negative Urine Ketones Negative Negative Urine Blood Negative Negative /uL Urine Nitrite Negative Negative Urine Bilirubin Negative Negative Urine Urobilinogen Normal Negative mg/dL Urine Leukocyte Esterase Negative Negative /uL Urine RBC None seen 0 - 3 /hpf Urine Microscopic WBC 0-3 /HPF Urine Squamous Epithelial Cells None seen <5 /hpf Urine Bacteria None seen None Seen /hpf Urine Hyaline Casts Few 0 - 2 /lpf Urine Glucose Normal Normal mg/dL White Blood Count 9.7 4.4-10.8 10^3/uL Red Blood Count 5.11 4.5-5.90 10^6/uL Hemoglobin 14.4 13.5-17.5 g/dL Hematocrit 43.2 41.0-53.0 % Mean Corpuscular Volume 84.5 80.0-100.0 fL Mean Corpuscular Hemoglobin 28.2 28.0-32.0 pg Mean Corpuscular Hemoglobin Concent 33.3 32.0-36.0 g/dL Red Cell Distribution Width 14.8 H 11.8-14.3 % Platelet Count 649 H 140-450 10^3/uL Mean Platelet Volume 8.2 6.9-10.8 fL Neutrophils (%) (Auto) 71.1 37.0-80.0 % Lymphocytes (%) (Auto) 16.0 10.0-50.0 % Monocytes (%) (Auto) 6.8 0.0-12.0 % Eosinophils (%) (Auto) 5.4 0.0-7.0 % Basophils (%) (Auto) 0.7 0.0-2.0 % Neutrophils # (Auto) 6.9 1.6-8.6 10 ^3/uL Lymphocytes # (Auto) 1.5 0.4-5.4 10 ^3/uL Monocytes # (Auto) 0.7 0-1.3 10 ^3/uL Eosinophils # (Auto) 0.5 0-0.8 10 ^3/uL Basophils # (Auto) 0.1 0-0.2 10 ^3/uL Nucleated Red Blood Cells 0.0 % Sodium Level 138 136-145 mmol/L Potassium Level 5.1 3.5-5.1 mmol/L Chloride Level 102 98-107 mmol/L Carbon Dioxide Level 26 20-31 mmol/L Anion Gap 10 5-15 Blood Urea Nitrogen 45 H 9-23 mg/dL Creatinine 2.30 H 0.700-1.30 mg/dL Glomerular Filtration Rate Calc 30 >90 mL/min BUN/Creatinine Ratio 19.6 10.0-20.0 Serum Glucose 179 H 74-106 mg/dL Calcium Level 10.1 8.7-10.4 mg/dL POC Glucose 70 70-106 mg/dl Assessment/Plan Assessment/Plan Assessment: Allergic reaction due to antibacterial drug, Uncontrolled diabetes mellitus, Osteomyelitis of left great toe, Acute on chronic renal failure, Hypertension, Hyperlipidemia, Hypothyroidism, Plan: Admit to Med-Surg, Nephrology consult, Podiatry consult, Wound care consult, IV antibiotics, IV hydration, Accu checks Q AC&HS with sliding scale, Home medications reconciled, Plan discussed with: Patient Date of Service: Oct 12, 2024 Billing Provider: KATELIN MARTINEZ Common Visit Codes: [id number] INP/OBS CARE (HIGH) KATELIN MARTINEZ Oct 12, 2024 16:25
[2024-10-12] MEDS ORDERED: DEXTROSE (50%) 50ML SYRG IV PRN (16:30)
[2024-10-12] MEDS: VANCOMYCIN 1.25GM/250ML 250 ML IV ONE (16:30)
[2024-10-12] MEDS: ACCU-CHEK COMFORT CURVE STRIP VI SCH (17:00)
[2024-10-12] MEDS: InsuLIN REG 1unit/0.01ml Soln (100units/ml) SC SCH ×2 (17:00→23:18)
[2024-10-12 21:47] VITALS: BP 136/84; PULSE 107; RESP 18; RESP 19; TEMP 97.6; O2SAT 96
[2024-10-12] MEDS: glipiZIDE 5 MG TAB PO SCH (23:03)
[2024-10-12] MEDS: ATORVASTATIN 20 MG TAB PO SCH (23:04)
[2024-10-13] VITALS (9 sets, daily range): BP systolic 101–139; BP diastolic 59–82; PULSE 80–106; RESP 17–20; TEMP 36.7; O2SAT 93–100
[2024-10-13] MEDS ORDERED: GLIP5TAB21 PO (00:49)
[2024-10-13] MEDS ORDERED: FAMO20TA10 PO (00:50)
[2024-10-13] MEDS ORDERED: SIMV40TA18 PO (00:51)
[2024-10-13 07:46] LABS: Basophils # (auto) 0 10 ^3/uL (0-0.2); Basophils % (auto) 0.3 % (0.0-2.0); Eosinophils # (auto) 0 10 ^3/uL (0-0.8); Hematocrit 40.3 % (41.0-53.0); Lymphocytes # (auto) 1.1 10 ^3/uL (0.4-5.4); Monocytes # (auto) 0.4 10 ^3/uL (0-1.3); Neutrophils # (auto) 9.3 10 ^3/uL (1.6-8.6)
[2024-10-13 07:47] LABS: Eosinophils % (auto) 0.1 % (0.0-7.0); Hemoglobin 13.2 g/dL (13.5-17.5); Lymphocytes % (auto) 9.9 % (10.0-50.0); Mean Corpuscular Hemoglobin 27.9 pg (28.0-32.0); Mean Corpuscular Hgb Conc. 32.9 g/dL (32.0-36.0); Mean Corpuscular Volume 84.9 fL (80.0-100.0); Monocytes % (auto) 3.8 % (0.0-12.0); Neutrophils % (auto) 85.9 % (37.0-80.0); Nucleated Red Blood Cells % 0.1 %; Platelet Count (auto) 631 10^3/uL (140-450); Red Blood Cells 4.75 10^6/uL (4.5-5.90); Red Cell Distribution Width 14.6 % (11.8-14.3); White Blood Cell 10.8 10^3/uL (4.4-10.8)
[2024-10-13 08:20] LABS: Alanine Aminotransferase 26 U/L (7-40); Albumin 4.1 g/dL (3.2-4.8); Alkaline Phosphatase 90 U/L (46-116); Anion Gap 10 (5-15); Aspartate Aminotransferase 19 U/L (13-40); BUN/Creatinine Ratio 24.9 (10.0-20.0); Calcium 9.3 mg/dL (8.7-10.4); Carbon Dioxide 23 mmol/L (20-31); Chloride 104 mmol/L (98-107); Sodium 137 mmol/L (136-145)
[2024-10-13 08:21] LABS: Bilirubin, Total 0.5 mg/dL (0.2-1.0); Total Protein 6.2 g/dL (5.7-8.2)
[2024-10-13 08:30] LABS: Blood Urea Nitrogen 46 mg/dL (9-23); Glucose 110 mg/dL (74-106)
[2024-10-13 08:32] LABS: Potassium 5.8 mmol/L (3.5-5.1)
[2024-10-13] MEDS: hydroCHLOROthiazide 25 MG TAB PO SCH (09:26)
[2024-10-13] MEDS: LEVOTHYROXINE SODIUM 100 MCG TAB PO SCH (09:26)
[2024-10-13] MEDS: METOPROLOL TARTRATE 25 MG TAB PO SCH (09:27)
[2024-10-13] MEDS: FUROSEMIDE 20 MG TAB PO SCH (09:27)
[2024-10-13] MEDS: ENALAPRIL MALEATE 10 MG TAB PO SCH (09:27)
[2024-10-13] MEDS: SODIUM BICARBONATE 650 MG TAB PO SCH (12:48)
[2024-10-13] MEDS: VANCOMYCIN 1.25GM/250ML 250 ML IV ONE (12:48)
[2024-10-13] MEDS: SODIUM ZIRCONIUM CYCL 10 GM PAK PO ONE (13:07)
--- NOTE | 2024-10-13 13:08 | DVHINCON2 ---
Date Seen: Oct 13, 2024 Reason for Consultation Left hallux wound History of Present Illness Javier Pantoja is a 69-year-old male with past medical history of 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 Patient has a diabetic foot wound to his left great toe for about 3 months. He has been following with his primary care provider and podiatry regularly for treatment. In July he had an MRI of his foot that showed osteomyelitis. He has been taking oral antibiotics for a couple months, waiting to see nephrology for renal clearance for a Picc line and IV antibiotics due to renal failure. About 3 weeks ago patient started getting a rash to his face and bilateral hands. He went to his primary care provider who prescribed a steroid cream. He has been using it without any improvement. He went back to his doctor and was told it is probably an allergic reaction to his antibiotics and to go to the hospital. Patient does have an appointment for tomorrow with nephrology. Past Medical History See H&P Past Surgical History See H&P Family History: FH: cancer G8 MOTHER G8 BROTHER G8 SISTER Hypertension G8 MOTHER Allergies: Coded Allergies: Doxycycline (Verified Allergy, Unknown, 10/13/24) Home Meds Active Scripts Insulin Glargine (Lantus Solostar) 100 Unit/Ml Inj, 10 UNIT SC QAM, #1500 UNITS Prov:DENIA ANDREW MD 01/04/24 Reported Medications Simvastatin (Simvastatin) 40 Mg Tab, 1 TAB PO DAILY, #30 TAB 5 Refills 10/13/24 Famotidine (PEPCID TABLET) 20 Mg Tb, 1 TAB PO DAILY, #60 TAB 5 Refills 10/13/24 Glipizide (Glipizide) 5 Mg Tab, 1 TAB PO DAILY, #90 TAB 3 Refills 10/13/24 Simvastatin (Simvastatin) 40 Mg Tab, 1 TAB PO 12/31/23 Metoprolol Succinate (Metoprolol Succinate Er) 25 Mg Tab, 1 TAB PO DAILY 12/31/23 Famotidine (Famotidine) 20 Mg Tab, 1 TAB PO 12/31/23 Furosemide (Furosemide) 20 Mg Tab, 1 TAB PO DAILY 12/31/23 Levothyroxine Sodium (SYNTHROID TABLET) 100 Mcg Tb, 100 MCG PO DAILY, TAB 07/18/23 Hctz (Hydrochlorothiazide) 25 Mg Tab, 12.5 MG PO DAILY, TAB 07/18/23 Glipizide (Glipizide) 5 Mg Tab, 5 MG PO BID, TAB 07/18/23 Enalapril Maleate (Enalapril Maleate) 20 Mg Tab, 20 MG PO DAILY, TAB 07/18/23 Current Medications Current Medications Medications (Trade) Dose Ordered Sig/Sunita Route PRN Reason Start Time Stop Time Status Last Admin Acetaminophen/ Hydrocodone Bitart ([place] 5/325MG Tab) 1 tab Q4HP PRN PO MODERATE PAIN (4-6 PAIN SCALE) 10/12/24 15:45 Ondansetron HCl (Zofran) 4 mg Q4HP PRN IV NAUSEA / VOMITING 10/12/24 15:45 Docusate Sodium (Colace Capsule) 100 mg BIDPRN PRN PO FOR CONSTIPATION 10/12/24 15:45 Acetaminophen (Tylenol Tablet) 650 mg Q6HP PRN PO PAIN SCALE 1-3 OR TEMP>100.4 10/12/24 15:45 Vancomycin HCl 0 ml @ 0 mls/hr UD IV 10/12/24 15:45 Diagnostic Test (Pha) (Accu-Chek Comfort Curve T) 1 strip ACHS 10/12/24 17:00 10/13/24 11:17 Insulin Human Regular (InsuLIN R) HS SC 10/12/24 22:00 10/12/24 23:18 Insulin Human Regular (InsuLIN R) AC SC 10/12/24 17:00 10/13/24 11:23 Dextrose 50 ml UD PRN IV Blood Sugar LESS THAN 60 10/12/24 16:30 Furosemide (Lasix Tablet) 20 mg DAILY PO 10/13/24 10:00 10/13/24 09:27 Glipizide (Glucotrol Tablet) 5 mg BID PO 10/12/24 22:00 10/13/24 09:34 Hydrochlorothiazide (hydroCHLOROthiazide TABLET) 12.5 mg DAILY PO 10/13/24 10:00 10/13/24 10:36 DC 10/13/24 09:26 Levothyroxine Sodium (Synthroid Tablet) 100 mcg DAILY PO 10/13/24 10:00 10/13/24 09:26 Enalapril Maleate (Vasotec Tablet) 20 mg DAILY PO 10/13/24 10:00 10/13/24 10:36 DC 10/13/24 09:27 Metoprolol Tartrate (Lopressor Tablet) 25 mg DAILY PO 10/13/24 10:00 10/13/24 09:27 Atorvastatin Calcium (Lipitor) 40 mg HS PO 10/12/24 22:00 10/12/24 23:04 Sodium Bicarbonate 650 mg TID PO 10/13/24 14:00 10/13/24 12:48 Vital Signs Vital Signs Date Time Temp Pulse Resp B/P (MAP) Pulse Ox O2 Delivery O2 Flow Rate FiO2 10/13/24 12:51 98.3 86 18 130/82 (98) 97 98.3 10/13/24 08:00 Room Air* 0 21 Physical Exam DERMATOLOGIC EXAM: - Skin is dry and cool to the touch dry bilaterally. - Nails 1-5 of the bilateral foot are thickened, discolored, dystrophic, and tender to palpate with subungual debris - Hair loss noted to bilateral feet Wound #1: Location: Right hallux Measurements: Length 1 cm x width 1 cm x depth 0.5 cm. Wound margins: Hyperkeratotic. Wound base: Full thickness. General Appearance: Healthy and bleeding. Probes to Bone: No Purulent drainage: No Serous drainage: No Erythema: Absent VASCULAR EXAM: - DP and PT pulses are palpable bilaterally. 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 - Feet are cool to touch compared to lower legs bilaterally. NEUROLOGIC EXAM: - Normal light touch sensation to the superficial peroneal, deep peroneal, sural, saphenous, and tibial nerve branches. - Protective sensation is diminished as tested with a 5.07 10g [place] bilaterally. MUSCULOSKELETAL EXAM: - No gross deformities - Muscle strength is 5/5 and active motion is pain-free and symmetrical bilaterally - No pain or crepitation with passive range of motion bilaterally to all major pedal joints Labs/Diagnostic Data Labs Test 10/13/24 11:16 10/13/24 06:03 10/12/24 15:05 10/12/24 13:09 Range/Units POC Glucose 152 H 70-106 mg/dl White Blood Count 10.8 4.4-10.8 10^3/uL Red Blood Count 4.75 4.5-5.90 10^6/uL Hemoglobin 13.2 L 13.5-17.5 g/dL Hematocrit 40.3 L 41.0-53.0 % Mean Corpuscular Volume 84.9 80.0-100.0 fL Mean Corpuscular Hemoglobin 27.9 L 28.0-32.0 pg Mean Corpuscular Hemoglobin Concent 32.9 32.0-36.0 g/dL Red Cell Distribution Width 14.6 H 11.8-14.3 % Platelet Count 631 H 140-450 10^3/uL Mean Platelet Volume 8.7 6.9-10.8 fL Neutrophils (%) (Auto) 85.9 H 37.0-80.0 % Lymphocytes (%) (Auto) 9.9 L 10.0-50.0 % Monocytes (%) (Auto) 3.8 0.0-12.0 % Eosinophils (%) (Auto) 0.1 0.0-7.0 % Basophils (%) (Auto) 0.3 0.0-2.0 % Neutrophils # (Auto) 9.3 H 1.6-8.6 10 ^3/uL Lymphocytes # (Auto) 1.1 0.4-5.4 10 ^3/uL Monocytes # (Auto) 0.4 0-1.3 10 ^3/uL Eosinophils # (Auto) 0 0-0.8 10 ^3/uL Basophils # (Auto) 0 0-0.2 10 ^3/uL Nucleated Red Blood Cells 0.1 % Sodium Level 137 136-145 mmol/L Potassium Level 5.8 *H 3.5-5.1 mmol/L Chloride Level 104 98-107 mmol/L Carbon Dioxide Level 23 20-31 mmol/L Anion Gap 10 5-15 Blood Urea Nitrogen 46 H 9-23 mg/dL Creatinine 1.85 H 0.700-1.30 mg/dL Glomerular Filtration Rate Calc 39 >90 mL/min BUN/Creatinine Ratio 24.9 H 10.0-20.0 Serum Glucose 110 H 74-106 mg/dL Hemoglobin A1c 7.6 H <5.7 % A1C Calcium Level 9.3 8.7-10.4 mg/dL Total Bilirubin 0.5 0.2-1.0 mg/dL Aspartate Amino Transferase (AST) 19 13-40 U/L Alanine Aminotransferase (ALT) 26 7-40 U/L Alkaline Phosphatase 90 46-116 U/L Total Protein 6.2 5.7-8.2 g/dL Albumin 4.1 3.2-4.8 g/dL Random Vancomycin Level 7.9 5-10 ug/mL Lactic Acid Level 1.3 0.4-2.0 mmol/L Urine Color Light-yellow Yellow Urine Clarity Clear Clear Urine pH 5.0 5.0-9.0 Urine Specific [place] 1.010 1.001-1.035 Urine Protein Negative Negative Urine Ketones Negative Negative Urine Blood Negative Negative /uL Urine Nitrite Negative Negative Urine Bilirubin Negative Negative Urine Urobilinogen Normal Negative mg/dL Urine Leukocyte Esterase Negative Negative /uL Urine RBC None seen 0 - 3 /hpf Urine Microscopic WBC 0-3 /HPF Urine Squamous Epithelial Cells None seen <5 /hpf Urine Bacteria None seen None Seen /hpf Urine Hyaline Casts Few 0 - 2 /lpf Urine Glucose Normal Normal mg/dL Problems(with codes): (1) Emphysematous cystitis (2) Acute renal failure (3) Allergic reaction due to antibacterial drug (4) Uncontrolled diabetes mellitus Plan/Recommendation ASSESSMENT: Patient is a 69 year old seen on the floor for a worsening ulcer right hallux PLAN: - The patients chart was reviewed, clinical findings were discussed with the patient, the etiologies of the conditions were discussed in detail, and a treatment plan was agreed to at this time, with both oral and written instructions provided. - reviewed advanced imaging - discussed with the patient that the wound does not appear infected at this point - discussed that he needs aggressive wound care as outpatient - debridement was done bedside - dress with Iodosorb, gauze with border, and 2 horseshoe pads - patient does not need IV antibiotics - patient is not need oral antibiotics - we will follow up with me being up next week All questions were answered and concerns addressed to the patient's satisfaction. The patient was given the phone number to the clinic and was told how to make contact with the clinic should any concerns or questions arise. Patient understands that if any questions or concerns arise prior to the next appointment, we should be contacted immediately. FOLLOW-UP: Continue to follow while inpatient Plan discussed with: Patient Date of Service: Oct 13, 2024 Billing Provider: JULIANNA WALLACE DPM Common Visit Codes: CONSULT ONLY Consultation Codes: [id number] CONSULT <80MIN JULIANNA WALLACE DPM Oct 13, 2024 13:08
[2024-10-13] MEDS: ALBUTEROL SULF 2.5 MG/0.5ML(0.5%) NEB SOLN NEB ONE (13:22)
--- NOTE | 2024-10-13 18:19 | DVHDS2 ---
Discharge Summary Date of Admission Oct 12, 2024 at 15:45 Date of Discharge: Oct 13, 2024 Admitting Diagnosis Allergic reaction Labs/Diagnostic Data: Laboratory Results Test 10/13/24 15:28 10/13/24 11:16 10/13/24 06:03 10/12/24 15:05 Potassium Level 4.0 mmol/L (3.5-5.1) POC Glucose 152 mg/dl (70-106) White Blood Count 10.8 10^3/uL (4.4-10.8) Red Blood Count 4.75 10^6/uL (4.5-5.90) Hemoglobin 13.2 g/dL (13.5-17.5) Hematocrit 40.3 % (41.0-53.0) Mean Corpuscular Volume 84.9 fL (80.0-100.0) Mean Corpuscular Hemoglobin 27.9 pg (28.0-32.0) Mean Corpuscular Hemoglobin Concent 32.9 g/dL (32.0-36.0) Red Cell Distribution Width 14.6 % (11.8-14.3) Platelet Count 631 10^3/uL (140-450) Mean Platelet Volume 8.7 fL (6.9-10.8) Neutrophils (%) (Auto) 85.9 % (37.0-80.0) Lymphocytes (%) (Auto) 9.9 % (10.0-50.0) Monocytes (%) (Auto) 3.8 % (0.0-12.0) Eosinophils (%) (Auto) 0.1 % (0.0-7.0) Basophils (%) (Auto) 0.3 % (0.0-2.0) Neutrophils # (Auto) 9.3 10 ^3/uL (1.6-8.6) Lymphocytes # (Auto) 1.1 10 ^3/uL (0.4-5.4) Monocytes # (Auto) 0.4 10 ^3/uL (0-1.3) Eosinophils # (Auto) 0 10 ^3/uL (0-0.8) Basophils # (Auto) 0 10 ^3/uL (0-0.2) Nucleated Red Blood Cells 0.1 % Sodium Level 137 mmol/L (136-145) Chloride Level 104 mmol/L (98-107) Carbon Dioxide Level 23 mmol/L (20-31) Anion Gap 10 (5-15) Blood Urea Nitrogen 46 mg/dL (9-23) Creatinine 1.85 mg/dL (0.700-1.30) Glomerular Filtration Rate Calc 39 mL/min (>90) BUN/Creatinine Ratio 24.9 (10.0-20.0) Serum Glucose 110 mg/dL (74-106) Hemoglobin A1c 7.6 % A1C (<5.7) Calcium Level 9.3 mg/dL (8.7-10.4) Total Bilirubin 0.5 mg/dL (0.2-1.0) Aspartate Amino Transferase (AST) 19 U/L (13-40) Alanine Aminotransferase (ALT) 26 U/L (7-40) Alkaline Phosphatase 90 U/L (46-116) Total Protein 6.2 g/dL (5.7-8.2) Albumin 4.1 g/dL (3.2-4.8) Random Vancomycin Level 7.9 ug/mL (5-10) Lactic Acid Level 1.3 mmol/L (0.4-2.0) Test 10/12/24 13:09 Urine Color Light-yellow (Yellow) Urine Clarity Clear (Clear) Urine pH 5.0 (5.0-9.0) Urine Specific [place] 1.010 (1.001-1.035) Urine Protein Negative (Negative) Urine Ketones Negative (Negative) Urine Blood Negative /uL (Negative) Urine Nitrite Negative (Negative) Urine Bilirubin Negative (Negative) Urine Urobilinogen Normal mg/dL (Negative) Urine Leukocyte Esterase Negative /uL (Negative) Urine RBC None seen /hpf (0 - 3) Urine Microscopic WBC /HPF (0-3) Urine Squamous Epithelial Cells None seen /hpf (<5) Urine Bacteria None seen /hpf (None Seen) Urine Hyaline Casts Few /lpf (0 - 2) Urine Glucose Normal mg/dL (Normal) Other Laboratory Tests 10/13/24 15:28 10/13/24 06:03 Brief Hx & Hospital Course: Javier Pantoja is a 69-year-old male with past medical history of 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 Patient has a diabetic foot wound to his left great toe for about 3 months. He has been following with his primary care provider and podiatry regularly for treatment. In July he had an MRI of his foot that showed osteomyelitis. He has been taking oral antibiotics for a couple months, waiting to see nephrology for renal clearance for a Picc line and IV antibiotics due to renal failure. About 3 weeks ago patient started getting a rash to his face and bilateral hands. He went to his primary care provider who prescribed a steroid cream. He has been using it without any improvement. He went back to his doctor and was told it is probably an allergic reaction to his antibiotics and to go to the hospital. Patient does have an appointment for tomorrow with nephrology. Patient was seen in Podiatry consultation, no need for IV or Oral antibiotics. Patient had hyperkalemia, repeat potassium was 4.0. Patient advised to stop Enalapril at home. Patient has a rash on both of his hands which has now been improving. Patient reports to be applying Vaseline on his hands. Patient advised needs to see podiatry and dermatology as outpatient. Condition at Discharge: Stable Final Diagnosis/Problems List Allergic reaction due to antibacterial drug on bilateral hands. Uncontrolled diabetes mellitus, Osteomyelitis of left great toe, Acute on chronic renal failure, Hypertension, Hyperlipidemia, Hypothyroidism, Discharge Disposition: Home Discharge Instruct/Medications Diet: Consistent carbohydrate Activity: Light activity Follow Up/Referral: Dermatology Podiatry in 2-3 days Medications: DC Enalapril Discharge Statement: "Patient was advised to return to the ER or call 911 if any headaches, dizziness, shortness of breath, chest pain, abdominal pain, bleeding, fevers, or worsening of medical condition. Patient was counseled about treatment plan, medications, possible side effects, patientverbalized understanding. All questions were answered to the best of my ability. This discharge took greater then 30 minutes in planning, reviewing documentation, counseling the patient, and discussing with other team members." ASSESSMENT ASSESSMENT Assessment Date of Service: Oct 13, 2024 Billing Provider: FLOR ADAMS MD Common Visit Codes: 93974-ZWK/OBS DISCH DAY >30min FLOR ADAMS MD Oct 13, 2024 18:19
--- NOTE | 2024-11-02 12:57 | DVHOP2 ---
Operative Report - 2 Report Details Date: 11/02/24 Preop Diagnosis: Left hallux diabetic ulcer Left hallux osteomyelitis Left hallux cellulitis Postop Diagnosis: Allergic reaction due to antibacterial drug on bilateral hands. Uncontrolled diabetes mellitus, Osteomyelitis of left great toe, Acute on chronic renal failure, Hypertension, Hyperlipidemia, Hypothyroidism, Surgeon: Julianna Wallace MD Anesthesiologist: None Anesthesia: Local Consent: The patient was informed of the risks and benefits of the procedure. These include but are not limited to complications of anesthesia, postoperative infection, incomplete relief of symptoms, recurrence of symptoms, damage to blood vessels, nerves and tendons, deep venous thrombosis, pulmonary embolism and possible need for repeat surgery in the future. Complications: None Estimated Blood Loss: Minimal Fluids: Minimal Findings: Consistent with diagnosis Indications for Surgery: Worsening hallux wound Name of Procedure Performed Left hallux debridement to bone (47567) Procedure Details Procedure Details: DESCRIPTION OF PROCEDURE: After thorough assessment of the patient's wound(s) it was decided that the debridement was needed. Procedure: Subcutaneous debridement, Subcutaneous tissue excised using #3 Curette, with a total area debrided of sq cm. < 20 sq cm was excised, 100% of the wounds were debrided Description of procedure: Explained risk and benefits of the procedure, patient identification verified, and verbal consent was obtained. The area was cleansed, prepped and anesthetized using 2% topical lidocaine Gel. Hemostasis achieved using pressure. Blood loss was minimal. Patient tolerated the procedure well. Patient/family was educated to report signs and symptoms of infection, significant pain, or other concerns to a healthcare provider. POSTOPERATIVE INFORMATION: The patient tolerated the above noted procedure and anesthesia well and was transferred to the PACU with vital signs stable, and vascular status intact with capillary refill intact to all digits. Postoperative instructions reviewed in detail with the patient with written instructions provided. Patient will return to clinic in approximately 10-14 days for first postoperative visit. Patient has the number of the clinic and was instructed to call prior to that time should any problems, questions, or concerns arise. Condition Good Disposition Still a Patient JULIANNA WALLACEM Nov 02, 2024 12:57
== END 2024-10-13 19:51 | disposition home or self-care (01) | DRG 570 ==
LOC: ER 11:19 → OVERFLOW 15:45 → WEST WING 15:56
PROVIDERS: ADMIT Internal Medicine; ATTEND Internal Medicine
PROC: 0JBR0ZZ Excision of Left Foot Subcutaneous Tissue and Fascia, Open Approach (ICD-10-PCS; principal; 2024-10-13)
DX: L27.1 Localized skin eruption due to drugs and medicaments taken internally (principal); N17.0 Acute kidney failure with tubular necrosis; I69.351 Hemiplegia and hemiparesis following cerebral infarction affecting right dominant side; M86.8X7 Other osteomyelitis, ankle and foot; E11.69 Type 2 diabetes mellitus with other specified complication; E03.9 Hypothyroidism, unspecified; T50.995A Adverse effect of other drugs, medicaments and biological substances, initial encounter; E11.22 Type 2 diabetes mellitus with diabetic chronic kidney disease; E87.5 Hyperkalemia; T45.8X5A Adverse effect of other primarily systemic and hematological agents, initial encounter; E78.5 Hyperlipidemia, unspecified; I12.9 Hypertensive chronic kidney disease with stage 1 through stage 4 chronic kidney disease, or unspecified chronic kidney disease; N18.9 Chronic kidney disease, unspecified; Z79.4 Long term (current) use of insulin; Z79.899 Other long term (current) drug therapy; Z79.84 Long term (current) use of oral hypoglycemic drugs; Z87.891 Personal history of nicotine dependence; Z82.49 Family history of ischemic heart disease and other diseases of the circulatory system; Y92.89 Other specified places as the place of occurrence of the external cause
CPT/HCPCS: 36415; 80048; 80053; 80202; 81001; 82962; 83036; 83605; 84132; 85025; 87040; 94640; 96365; 96375; G0378; J1815

== ENCOUNTER 2025-02-09 08:18 | Outpatient (CLI) | payer OTHER ==
[~2025-02-09 08:18] MED LIST changes: -ENAL1TAB48 PO; +FAMO20TA10 PO
[2025-02-09 08:45] LABS: Urine Bacteria None Seen /hpf (None Seen)
[2025-02-09 08:55] LABS: Basophils # (auto) 0.1 10 ^3/uL (0-0.2); Hemoglobin 16.3 g/dL (13.5-17.5); Lymphocytes # (auto) 1.6 10 ^3/uL (0.4-5.4); Monocytes # (auto) 0.6 10 ^3/uL (0-1.3); Neutrophils # (auto) 6.2 10 ^3/uL (1.6-8.6); Nucleated Red Blood Cells % 0.1 %; Red Cell Distribution Width 14.2 % (11.8-14.3)
[2025-02-09 08:56] LABS: Eosinophils # (auto) 0.7 10 ^3/uL (0-0.8); Eosinophils % (auto) 7.1 % (0.0-7.0); Lymphocytes % (auto) 17.2 % (10.0-50.0); Mean Corpuscular Hemoglobin 28.4 pg (28.0-32.0); Mean Corpuscular Hgb Conc. 34.1 g/dL (32.0-36.0); Mean Corpuscular Volume 83.4 fL (80.0-100.0); Monocytes % (auto) 6.4 % (0.0-12.0); Neutrophils % (auto) 68.3 % (37.0-80.0); Platelet Count (auto) 635 10^3/uL (140-450); Red Blood Cells 5.75 10^6/uL (4.5-5.90); White Blood Cell 9.1 10^3/uL (4.4-10.8)
[2025-02-09 08:58] LABS: Urine Blood Negative /uL (Negative); Urine Clarity Clear (Clear); Urine Color Yellow (Yellow); Urine Hyaline Cast FEW /lpf (0 - 2); Urine Protein, UAD TRACE (Negative); Urine Specific Gravity 1.014 (1.001-1.035); Urine Squamous Epithelial Cell None Seen /hpf (<5); Urine Urobilinogen Normal (Negative); Urine pH 5.5 (5.0-9.0)
[2025-02-09 09:00] LABS: Urine WBC < 1 /HPF (0-3)
[2025-02-09 09:17] LABS: Potassium 4.8 mmol/L (3.5-5.1)
[2025-02-09 09:18] LABS: Calcium 10.4 mg/dL (8.7-10.4)
[2025-02-09 09:23] LABS: BUN/Creatinine Ratio 19.4 (10.0-20.0)
[2025-02-09 09:24] LABS: Creatinine, Urine 78.94 mg/dL (30.0-125.0)
[2025-02-09 09:25] LABS: Phosphorus 3.5 mg/dL (2.4-5.1)
[2025-02-09 09:26] LABS: Albumin 4.8 g/dL (3.2-4.8)
[2025-02-09 10:06] LABS: Uric Acid 10.2 mg/dL (3.7-9.2)
[2025-02-11 16:07] LABS: Albumin 3.9 g/dL (2.9-4.4); Alpha-1-Globulin 0.3 g/dL (0.0-0.4); Alpha-2-Globulin 0.8 g/dL (0.4-1.0); Gamma Globulin 1.3 g/dL (0.4-1.8); Globulin Total 3.4 g/dL (2.2-3.9); Protein Total Serum 7.3 g/dL (6.0-8.5)
== END 2025-02-09 17:00 | disposition home or self-care (01) ==
LOC: LAB 08:18
PROVIDERS: ATTEND Internal Medicine
DX: E11.22 Type 2 diabetes mellitus with diabetic chronic kidney disease (principal); N18.30 Chronic kidney disease, stage 3 unspecified; N39.0 Urinary tract infection, site not specified; E21.3 Hyperparathyroidism, unspecified; M10.9 Gout, unspecified; E55.9 Vitamin D deficiency, unspecified; R80.9 Proteinuria, unspecified; D63.1 Anemia in chronic kidney disease
CPT/HCPCS: 36415; 80069; 81001; 82043; 82570; 84155; 84156; 84165; 84166; 84550; 85025

== ENCOUNTER 2025-05-10 12:49 | Outpatient (CLI) | payer OTHER ==
[2025-05-10 13:12] LABS: Hemoglobin 15.5 g/dL (13.5-17.5)
[2025-05-10 13:13] LABS: Hematocrit 45.4 % (41.0-53.0); Mean Corpuscular Hemoglobin 28.5 pg (28.0-32.0); Mean Corpuscular Volume 83.1 fL (80.0-100.0); Nucleated Red Blood Cells % 0.0 %
[2025-05-10 13:31] LABS: Urine Protein, UAD TRACE (Negative)
[2025-05-10 13:45] LABS: Anion Gap 7.0 (5-15); Carbon Dioxide 27.0 mmol/L (20-31); Chloride 106.0 mmol/L (98-107); Potassium 4.9 mmol/L (3.5-5.1); Sodium 140.0 mmol/L (136-145)
[2025-05-10 13:46] LABS: Calcium 9.6 mg/dL (8.7-10.4)
[2025-05-10 13:50] LABS: Uric Acid 9.8 mg/dL (3.7-9.2)
[2025-05-10 13:51] LABS: BUN/Creatinine Ratio 13.4 (10.0-20.0); Blood Urea Nitrogen 26.0 mg/dL (9-23); Glucose 126.0 mg/dL (74-106)
[2025-05-10 13:53] LABS: Albumin 4.4 g/dL (3.2-4.8)
[2025-05-10 14:08] LABS: Protein, Urine 32.5 mg/dL (1-14)
== END 2025-05-10 17:00 | disposition home or self-care (01) ==
LOC: LAB 12:49
PROVIDERS: ATTEND Internal Medicine
DX: E11.22 Type 2 diabetes mellitus with diabetic chronic kidney disease (principal); N18.30 Chronic kidney disease, stage 3 unspecified; E11.21 Type 2 diabetes mellitus with diabetic nephropathy; E55.9 Vitamin D deficiency, unspecified; E21.3 Hyperparathyroidism, unspecified; N39.0 Urinary tract infection, site not specified; D63.1 Anemia in chronic kidney disease; M10.9 Gout, unspecified; R80.9 Proteinuria, unspecified
CPT/HCPCS: 36415; 80069; 81003; 82570; 83970; 84155; 84156; 84165; 84166; 84550; 85025

== ENCOUNTER 2025-05-20 08:36 | Outpatient (CLI) | payer OTHER ==
[2025-05-20 09:04] LABS: Hematocrit 47.2 % (41.0-53.0); Hemoglobin 16.2 g/dL (13.5-17.5); Mean Corpuscular Hemoglobin 28.5 pg (28.0-32.0); Mean Corpuscular Volume 83.0 fL (80.0-100.0); Nucleated Red Blood Cells % 0.1 %
[2025-05-20 09:30] LABS: Urine Protein, UAD 1+ (Negative)
[2025-05-20 10:05] LABS: Alanine Aminotransferase 19 U/L (7-40); Albumin 4.6 g/dL (3.2-4.8); Alkaline Phosphatase 111 U/L (46-116); Anion Gap 6 (5-15); BUN/Creatinine Ratio 11.7 (10.0-20.0); Calcium 9.7 mg/dL (8.7-10.4); Carbon Dioxide 29 mmol/L (20-31); Chloride 104 mmol/L (98-107); Magnesium 1.8 mg/dL (1.6-2.6); Potassium 5.1 mmol/L (3.5-5.1); Sodium 139 mmol/L (136-145); Total Protein 7.8 g/dL (5.7-8.2); Triglycerides 114 mg/dL (< 150)
[2025-05-20 10:06] LABS: Bilirubin, Total 0.6 mg/dL (0.2-1.0); Cholesterol 128 mg/dL (< 200); HDL Cholesterol 46 mg/dL (40-59)
[2025-05-20 10:07] LABS: Blood Urea Nitrogen 23 mg/dL (9-23); Glucose 170 mg/dL (74-106)
[2025-05-20 10:33] LABS: Prostate Specific Antigen 0.48 ng/mL (0.0-4.0)
[2025-05-20 11:23] LABS: Uric Acid 9.5 mg/dL (3.7-9.2)
== END 2025-05-20 17:00 | disposition home or self-care (01) ==
LOC: LAB 08:36
PROVIDERS: ATTEND Family Medicine
DX: E11.22 Type 2 diabetes mellitus with diabetic chronic kidney disease (principal); N18.32 Chronic kidney disease, stage 3b; E11.3593 Type 2 diabetes mellitus with proliferative diabetic retinopathy without macular edema, bilateral; K63.5 Polyp of colon; Z00.00 Encounter for general adult medical examination without abnormal findings; Z79.899 Other long term (current) drug therapy
CPT/HCPCS: 36415; 80053; 80061; 81001; 82306; 82607; 83036; 83735; 84153; 84443; 84550; 85025

== ENCOUNTER 2025-07-12 08:59 | Outpatient (CLI) | payer OTHER ==
[2025-07-12 09:30] LABS: Nucleated Red Blood Cells % 0.0 %
[2025-07-12 09:32] LABS: Hematocrit 46.0 % (41.0-53.0); Hemoglobin 15.7 g/dL (13.5-17.5); Mean Corpuscular Hemoglobin 28.9 pg (28.0-32.0); Mean Corpuscular Volume 84.6 fL (80.0-100.0)
[2025-07-12 09:40] LABS: Urine Protein, UAD 1+ (Negative)
[2025-07-12 09:45] LABS: INR 1.03 (0.9-1.15); Partial Thromboplastin Time 28.6 SEC (24.5-34.5); Prothrombin Time 10.9 sec (9.3-11.8)
[2025-07-12 10:04] LABS: Alanine Aminotransferase 19 U/L (7-40); Albumin 4.2 g/dL (3.2-4.8); Anion Gap 4 (5-15); BUN/Creatinine Ratio 14.7 (10.0-20.0); Calcium 9.8 mg/dL (8.7-10.4); Carbon Dioxide 31 mmol/L (20-31); Chloride 105 mmol/L (98-107); Sodium 140 mmol/L (136-145); Total Protein 7.3 g/dL (5.7-8.2)
[2025-07-12 10:05] LABS: Bilirubin, Total 0.5 mg/dL (0.2-1.0)
[2025-07-12 10:19] LABS: Iron 101.0 ug/dL (65-175)
[2025-07-12 10:20] LABS: Alkaline Phosphatase 127 U/L (46-116); Blood Urea Nitrogen 24 mg/dL (9-23); Glucose 252 mg/dL (74-106)
[2025-07-12 10:22] LABS: Total Iron Binding Capacity 287.0 ug/dL (250-425)
[2025-07-12 10:35] LABS: Potassium 5.6 mmol/L (3.5-5.1)
== END 2025-07-12 17:00 | disposition home or self-care (01) ==
LOC: LAB 08:59
PROVIDERS: ATTEND Family Medicine
DX: E11.22 Type 2 diabetes mellitus with diabetic chronic kidney disease (principal); N18.2 Chronic kidney disease, stage 2 (mild); Z00.00 Encounter for general adult medical examination without abnormal findings; Z68.29 Body mass index [BMI] 29.0-29.9, adult
CPT/HCPCS: 36415; 80053; 81001; 83036; 83540; 83550; 85025; 85610; 85730